=== PATIENT | male | born 1955 | race African-American/Black ===

== ENCOUNTER 2017-03-30 14:35 | Emergency (ER) | payer OTHER ==
[~2017-03-30] VITALS: Ht 177.8 cm; Wt 95.7 kg
[2017-03-30] MEDS ORDERED: METFORMIN HCL500 MG PO (14:45)
[2017-03-30] MEDS ORDERED: FARXIGA10 MG PO (14:46)
[2017-03-30] MEDS ORDERED: GLIPIZIDE 10 MG10 MG PO (14:46)
[2017-03-30] MEDS ORDERED: PROBIOTIC1 EAC1 PO (14:46)
[2017-03-30] MEDS ORDERED: [UNRECOGNIZED DRUG - OTHER] (14:47)
[2017-03-30] MEDS ORDERED: ASPIR 8181 M1 PO (14:47)
[2017-03-30] MEDS ORDERED: FISH OIL 1,001000 M2 PO (14:48)
[2017-03-30] MEDS ORDERED: VITAMIN E400 UNIT PO (14:48)
[2017-03-30] MEDS ORDERED: VITAMIN D3400 UNIT PO (14:48)
[2017-03-30] MEDS ORDERED: B COMPLEX1 EACH PO (14:48)
[2017-03-30] MEDS ORDERED: CENTRUM SILVER1 EAC2 PO (14:49)
[2017-03-30] MEDS ORDERED: CIPRO500 MG PO (15:41)
[2017-03-30 16:01] VITALS: BP 137/71
== END 2017-03-30 16:04 | disposition home or self-care (01) ==
LOC: ER 14:35
DX: S91.332A Puncture wound without foreign body, left foot, initial encounter (principal); I10 Essential (primary) hypertension; E11.40 Type 2 diabetes mellitus with diabetic neuropathy, unspecified; F10.99 Alcohol use, unspecified with unspecified alcohol-induced disorder; Z91.041 Radiographic dye allergy status; Z91.013 Allergy to seafood; W22.8XXA Striking against or struck by other objects, initial encounter; Y93.89 Activity, other specified; Y92.89 Other specified places as the place of occurrence of the external cause; Y99.8 Other external cause status